=== PATIENT | female | born 1965 | race American Indian/Alaskan Native ===

== ENCOUNTER 2016-03-09 17:04 | Emergency (ER) | payer BC, OTHER ==
--- NOTE | 2016-03-09 20:01 | Emergency Department Report ---
ED Lower Extremity HPI - General Chief Complaint: Extremity Injury, Lower Stated Complaint: RT KNEE PAIN Time Seen by Provider: 03/09/16 19:44 Source: patient Mode of arrival: Ambulatory Limitations: No Limitations - History of Present Illness Initial Comments: Patient had reported that she has right knee pain on and off for 2 years. Patient states that it's painful to walk. She denies any injury. She said that she went to a doctor in the past and doctor gave her pain medicine but her pain is increasing. She says sometimes the pain goes from her foot all the way to her hip. Denies any old injury. Reports pain is 10 out of 10. Denies any fever or chills. Eyes any redness to the knee. MD Complaint: knee injury Onset/Timin -: year(s) Injury: Knee: Right (pain) Type of Injury: unknown Place: home Severity: severe Severity scale (0 -10): 10 Improves With: NSAID Worsens With: weight bearing, movement Context: other (no injuries) Associated Symptoms: ambulatory. denies: snap/pop sensation, swelling, numbness , tingling Treatments Prior to Arrival: NSAIDS - Related Data Previous Rx's Medication Instructions Recorded Last Taken Type traMADol [Ultram] 50 mg PO Q6HR PRN #20 tablet 03/09/16 Unknown Rx Allergies Allergy/AdvReac Type Severity Reaction Status Date / Time No Known Allergies Allergy Unverified 06/11/14 10:58 ED Review of Systems ROS: Stated complaint: RT KNEE PAIN Other details as noted in HPI Comment: All other systems reviewed and negative Constitutional: denies: chills, fever Respiratory: no symptoms reported Cardiovascular: denies: chest pain, palpitations, edema, syncope Gastrointestinal: denies: nausea, vomiting, diarrhea Musculoskeletal: arthralgia. denies: back pain, joint swelling Skin: denies: rash Neurological: denies: headache, weakness, numbness, paresthesias, confusion, abnormal gait, vertigo ED Past Medical Hx - Past Medical History Previous Medical History?: Yes Additional medical history: Chronic knee pain - Surgical History Past Surgical History?: No - Family History Family history: no significant - Social History Smoking Status: Never Smoker Substance Use Type: None - Medications Home Medications: Home Medications Medication Instructions Recorded Confirmed Last Taken Type traMADol [Ultram] 50 mg PO Q6HR PRN #20 tablet 03/09/16 Unknown Rx ED Physical Exam - General Limitations: No Limitations General appearance: alert, in no apparent distress - Head Head exam: Present: atraumatic, normocephalic, normal inspection - Eye Eye exam: Present: normal appearance, PERRL, EOMI Pupils: Present: normal accommodation - Respiratory Respiratory exam: Present: normal lung sounds bilaterally. Absent: respiratory distress - Cardiovascular Cardiovascular Exam: Present: regular rate, normal rhythm, normal heart sounds - Extremities Exam Extremities exam: Present: normal inspection, full ROM, normal capillary refill. Absent: tenderness, pedal edema, joint swelling, calf tenderness - Expanded Lower Extremity Exam Right Hip exam: Present: normal inspection, full ROM, pelvic stability. Absent: tenderness, swelling, abrasion, laceration, ecchymosis, deformity, crepidus, dislocation, erythema, external rotation, internal rotation, shortening Upper Leg exam: Present: normal inspection, full ROM. Absent: tenderness, swelling, abrasion, laceration, ecchymosis, deformity, crepidus, dislocation, erythema Knee exam: Present: normal inspection, full ROM, full knee extension. Absent: tenderness, swelling, abrasion, laceration, ecchymosis, deformity, crepidus, dislocation, erythema, effusion, pain w/ pronation/supination, posterior draw sign, pain/laxity with valgus, pain/laxity with varus Lower Leg exam: Present: normal inspection, full ROM. Absent: tenderness, swelling, abrasion, laceration, ecchymosis, deformity, crepidus, dislocation, erythema, palpable cord, Jhon's sign Ankle exam: Present: normal inspection, full ROM. Absent: tenderness, swelling , abrasion, laceration, ecchymosis, deformity, crepidus, dislocation, erythema Foot/Toe exam: Present: normal inspection, full ROM. Absent: tenderness, swelling, abrasion, laceration, ecchymosis, deformity, crepidus, dislocation, erythema, amputation, puncture wound, foreign body, calcaneal tenderness, tenderness at base of 5th metatarsal, nail avulsion, subungual hematoma Neuro vascular tendon exam: Present: no vascular compromise. Absent: pulse deficit, abnormal cap refill, motor deficit, sensory deficit, tendon deficit, extremity cold to touch, pallor, abnormal 2-point discrimination, decreased fine /light touch, foot drop, peroneal nerve deficit, significant pain with passive ROM of distal joint Gait: Positive: observed and normal - Back Exam Back exam: Present: normal inspection, full ROM - Neurological Exam Neurological exam: Present: alert, oriented X3, normal gait, reflexes normal. Absent: motor sensory deficit - Psychiatric Psychiatric exam: Present: normal affect, normal mood - Skin Skin exam: Present: warm, dry, intact, normal color. Absent: rash ED Course Vital Signs 03/09/16 03/09/16 18:30 22:51 Temperature 97.8 F Pulse Rate 69 72 Respiratory 18 18 Rate Blood Pressure 158/91 Blood Pressure 142/88 [Left] O2 Sat by Pulse 100 100 Oximetry - Reevaluation(s) Reevaluation #1: 03/09/16 20:00 Patient awaiting an x-ray of right knee. Reevaluation #2: 03/09/16 22:37 Patient stable throughout ED course she says she was having no pain. ED Lower Extremity MDM - Radiology Data Radiology results: report reviewed X-ray of right knee revealed no fracture or dislocation. No mention of arthritis. - Medical Decision Making ED course: Discussed with patient that her x-ray of her right knee was normal and she will need to follow-up with orthopedic doctor for further evaluation and treatment. Discussed with her she probably need to have MRI for her knee because x-ray only looks that bone. Patient is ambulatory. She is requesting pain medication because she reports that it hurts when she moves her knee and walks. Patient will be discharged home with prescription Ultram. Critical care attestation.: If time is entered above; I have spent that time in minutes in the direct care of this critically ill patient, excluding procedure time. ED Disposition Clinical Impression: Arthralgia of right knee Disposition: DISCHARGED TO HOME OR SELFCARE Is pt being admited?: No Does the pt Need Aspirin: No Condition: Stable Instructions: Arthralgia (ED) Prescriptions: traMADol [Ultram] 50 mg PO Q6HR PRN #20 tablet PRN Reason: Pain Referrals: TIM CENTENO MD [Primary Care Provider] - 03/11/16 KATLYN CONTRERAS MD [Staff Physician] - 03/12/16 Forms: Work/School Release Form(ED)
--- NOTE | 2016-03-09 22:30 | XRay Report ---
FINAL REPORT EXAM: XR KNEE 3V RT HISTORY: rt knee pain. TECHNIQUE: Three views of the right knee PRIORS: None. FINDINGS: The bones are normally aligned and mineralized. The joint spaces are well-preserved. There is no evidence of acute fracture. The soft tissues are unremarkable. IMPRESSION: No evidence of acute fracture or subluxation. Normal right knee series
[2016-03-09 22:51] VITALS: BP 142/88
== END 2016-03-09 22:53 | disposition home or self-care (01) ==
LOC: ED 17:04
DX: M25.561 Pain in right knee (principal)
CPT/HCPCS: 99283